=== PATIENT | female | born 1985 | race Two or more races ===

== ENCOUNTER 2020-07-12 00:06 | Emergency (ER) | payer OTHER ==
[~2020-07-12] VITALS: Ht 160 cm; Wt 59.0 kg
[2020-07-12 00:07] VITALS: BP 133/77
== END 2020-07-12 02:25 | disposition home or self-care (01) ==
LOC: ER 00:09
DX: B34.9 Viral infection, unspecified (principal); R05 Cough; R68.83 Chills (without fever); R06.02 Shortness of breath; Z20.828 Contact with and (suspected) exposure to other viral communicable diseases
CPT/HCPCS: 71045; 99284; C9803; U0003